=== PATIENT | female | born 1985 | race Caucasian/White ===

== ENCOUNTER → 2017-03-26 | Outpatient (CLI) | payer OTHER ==
[2017-03-26 14:26] LABS: TOTAL 25(OH) VITAMIN D 30.2 NG/ML (30.0-100.0)
[2017-03-26 14:28] LABS: CHOLESTEROL LEVEL 214 MG/DL (<200); CHOLESTEROL RISK RATIO 5.783 (<5); HDL CHOLESTEROL 37 MG/DL (>40); NON-HDL-C 177 MG/DL; TRIGLYCERIDES LEVEL 170 MG/DL (<150)
== END ==
LOC: M SMT 10:06
DX: E55.9 Vitamin D deficiency, unspecified (principal); E78.2 Mixed hyperlipidemia
CPT/HCPCS: 84443

== ENCOUNTER → 2017-04-10 | Outpatient (REF) | payer OTHER | LOC: M LAB REF 18:26 | DX: Z12.4 Encounter for screening for malignant neoplasm of cervix (principal) ==